=== PATIENT | male | born 1935 | race Caucasian/White ===

== ENCOUNTER 2016-10-23 14:42 | Outpatient (CLI) | payer MEDICARE, BC | END 2016-10-23 14:43 | disposition home or self-care (01) | DRG 554 | LOC: CONVCARE 14:42 | PROVIDERS: ATTEND Orthopaedic Surgery | DX: M17.11 Unilateral primary osteoarthritis, right knee (principal) | CPT/HCPCS: 73564 ==

== ENCOUNTER 2017-12-15 13:23 | Day surgery (SDC) | payer MEDICARE, BC ==
[2017-12-15] MEDS ORDERED: BUPIVACAINE HCL 0.25% MPF 30 ML SOL INFIL ONE (14:49)
[2017-12-15] MEDS ORDERED: DEXAMETHASONE SOD PHOS PF 10 MG/ML SOL IJ ONE (14:49)
[2017-12-15 15:27] VITALS: BP 139/68; PULSE 62; RESP 24; TEMP 98; O2SAT 94
== END 2017-12-15 15:50 | disposition home or self-care (01) | DRG 552 ==
LOC: SURG 13:23
PROVIDERS: ATTEND Nurse Anesthetist, Certified Registered
DX: M48.062 Spinal stenosis, lumbar region with neurogenic claudication (principal)
CPT/HCPCS: J1100

== ENCOUNTER 2018-01-20 11:28 | Day surgery (SDC) | payer MEDICARE, BC ==
[2018-01-20] MEDS: DEXAMETHASONE SOD PHOS PF 10 MG/ML SOL IJ ONE ×2 (12:38→12:43)
[2018-01-20 12:55] VITALS: BP 131/76; PULSE 50; RESP 18; TEMP 97.4; O2SAT 98
== END 2018-01-20 13:35 | disposition home or self-care (01) | DRG 552 ==
LOC: SURG 11:28
PROVIDERS: ATTEND Nurse Anesthetist, Certified Registered
DX: M48.062 Spinal stenosis, lumbar region with neurogenic claudication (principal)
CPT/HCPCS: J1100